=== PATIENT | male | born 1990 | race Caucasian/White ===

== ENCOUNTER 2018-03-24 10:49 | Emergency (ER) | payer OTHER ==
--- NOTE | 2018-03-24 12:24 | RAD ---
LEFT HAND 3 VIEWS: HISTORY: Injury, left hand pain. FINDINGS/IMPRESSION: No fracture or dislocation is identified. POS: [facility]
--- NOTE | 2018-03-24 12:28 | RAD ---
RIGHT HAND THREE VIEWS: HISTORY: Fall with injury to hand. Pain. FINDINGS: The carpals appear intact. The metacarpals and phalanges also appear intact. IMPRESSION: No acute fracture identified. POS: [facility]
== END 2018-03-24 12:00 | disposition home or self-care (01) ==
LOC: ERS 10:49
DX: S60.222A Contusion of left hand, initial encounter (principal); S60.221A Contusion of right hand, initial encounter; S60.812A Abrasion of left wrist, initial encounter; S60.811A Abrasion of right wrist, initial encounter; W23.0XXA Caught, crushed, jammed, or pinched between moving objects, initial encounter